=== PATIENT | female | born 1970 | race American Indian/Alaskan Native ===

== ENCOUNTER 2019-05-03 23:34 | Emergency (ER) | payer SELFPAY ==
--- NOTE | 2019-05-04 00:44 | XRay Report ---
CHEST 1 VIEW INDICATION / CLINICAL INFORMATION: MAIN: Chest Pain ALSO LEFT ARM PAIN. COMPARISON: None available. FINDINGS: SUPPORT DEVICES: None. HEART / MEDIASTINUM: No significant abnormality. LUNGS / PLEURA: No significant pulmonary or pleural abnormality. No pneumothorax. ADDITIONAL FINDINGS: No significant additional findings. IMPRESSION: 1. No acute findings. Signer Name: Michael Khan MD Signed: 05/04/2019 12:39 AM Workstation Name: [id number]
[2019-05-04 00:52] LABS: Basophils # (Auto) 0.1 K/mm3 (0.0-0.1); Eosinophils # (Auto) 0.1 K/mm3 (0.0-0.4); Eosinophils % (Auto) 1.6 % (0.0-4.3); Hematocrit 36.2 % (30.3-42.9); Hemoglobin 12.6 gm/dl (10.1-14.3); Lymphocytes # (Auto) 2.3 K/mm3 (1.2-5.4); Lymphocytes % (Auto) 29.8 % (13.4-35.0); Mean Corpuscular HGB Conc 35 % (30-34); Mean Corpuscular Volume 85 fl (79-97); Monocytes # (Auto) 0.5 K/mm3 (0.0-0.8); Monocytes % (Auto) 6.2 % (0.0-7.3); Platelet Count 250 K/mm3 (140-440); Red Blood Count 4.25 M/mm3 (3.65-5.03); Red Cell Distribution Width 15.8 % (13.2-15.2)
[2019-05-04 01:06] LABS: BUN/Creatinine Ratio 9; Blood Urea Nitrogen 10 mg/dL (7-17); Calcium 9.6 mg/dL (8.4-10.2); Hemolysis Index 10
[2019-05-04] MEDS ORDERED: PERCOCET 5/325 PO ONE (01:22)
[2019-05-04] MEDS ORDERED: NORMODYNE PO ONE ×2 (01:22→02:19)
[2019-05-04] MEDS ORDERED: TORADOL IM ONE (01:22)
[2019-05-04] MEDS ORDERED: FLEXERIL PO ONE (01:23)
--- NOTE | 2019-05-04 01:29 | Emergency Department Report ---
ED Neck Pain/Injury HPI - General Chief Complaint: Chest Pain Stated Complaint: SOB/LEFT SIDE SHARP PAIN/NUMBNESS Time Seen by Provider: 05/04/19 01:09 Mode of arrival: Ambulatory Limitations: Language Barrier - History of Present Illness Initial Comments: Mrs. Kumar is a 49-year-old female with history of dyslipidemia, congestive heart failure who presents with posterior neck pain and left arm pain for the past 5 days. She woke with severe neck pain on Friday. She was diagnosed with pinched nerve at outside hospital. She works at a [employer] center. No previous history of trauma. Tylenol did not improve the pain. Denies chest pain. No shortness of breath. She has tingling in the fingers. MD Complaint: neck pain -: Gradual, days(s) (5) Place: home Radiation: left upper extremity Severity: severe Severity scale (0 -10): 10 Consistency: constant Worsens With: movement of extremity, movement of neck Associated Symptoms: tingling Treatments Prior to Arrival: Acetaminophen - Related Data Previous Rx's Medication Instructions Recorded Last Taken Type Cyclobenzaprine [Flexeril] 10 mg PO TID PRN #20 tablet 05/04/19 Unknown Rx HYDROcodone/APAP 5-325 [[place] 1 each PO Q4HR PRN #10 tablet 05/04/19 Unknown Rx 5/325] Ibuprofen [Motrin 800 MG tab] 800 mg PO Q8HR PRN #15 tablet 05/04/19 Unknown Rx amLODIPine [Norvasc] 5 mg PO DAILY 30 Days #30 tab 05/04/19 Unknown Rx Allergies Allergy/AdvReac Type Severity Reaction Status Date / Time lisinopril Allergy Angioedema Verified 05/03/19 23:45 Penicillins Allergy Unknown Verified 05/03/19 23:45 shellfish derived Allergy Angioedema Verified 05/03/19 23:45 ED Review of Systems ROS: Stated complaint: SOB/LEFT SIDE SHARP PAIN/NUMBNESS Other details as noted in HPI Comment: All other systems reviewed and negative Constitutional: denies: fever, malaise Cardiovascular: denies: chest pain Neurological: paresthesias ED Past Medical Hx - Past Medical History Previous Medical History?: Yes Hx Congestive Heart Failure: Yes (Last EF 15%) Hx Seizures: Yes Additional medical history: Was on heart transplant list and was to get a pacemaker. Patient reports last EF 1 year ago 15% and that CHF improved and was removed from list. Take Entresto now. - Surgical History Past Surgical History?: No - Social History Smoking Status: Never Smoker - Medications Home Medications: Home Medications Medication Instructions Recorded Confirmed Last Taken Type Cyclobenzaprine [Flexeril] 10 mg PO TID PRN #20 tablet 05/04/19 Unknown Rx HYDROcodone/APAP 5-325 [[place] 1 each PO Q4HR PRN #10 tablet 05/04/19 Unknown Rx 5/325] Ibuprofen [Motrin 800 MG tab] 800 mg PO Q8HR PRN #15 tablet 05/04/19 Unknown Rx amLODIPine [Norvasc] 5 mg PO DAILY 30 Days #30 tab 05/04/19 Unknown Rx ED Physical Exam - General Limitations: Language Barrier General appearance: alert, in no apparent distress, other (appears uncomfortable especially with movement) - Head Head exam: Present: atraumatic, normocephalic - Eye Eye exam: Present: normal appearance - ENT ENT exam: Present: mucous membranes moist - Neck Neck exam: Present: normal inspection, full ROM - Respiratory Respiratory exam: Present: normal lung sounds bilaterally. Absent: respiratory distress, wheezes, rales, rhonchi - Cardiovascular Cardiovascular Exam: Present: regular rate, normal rhythm, normal heart sounds. Absent: systolic murmur, diastolic murmur, rubs, gallop - GI/Abdominal GI/Abdominal exam: Present: soft, normal bowel sounds. Absent: distended, tenderness, guarding, rebound - Extremities Exam Extremities exam: Present: normal inspection, other (severe pain with range of motion passive range of motion of the left upper extremity) - Back Exam Back exam: Present: normal inspection - Neurological Exam Neurological exam: Present: alert, oriented X3 - Psychiatric Psychiatric exam: Present: normal affect, normal mood - Skin Skin exam: Present: warm, dry, intact, normal color. Absent: rash ED Course Vital Signs 05/03/19 05/04/19 05/04/19 23:49 01:28 01:35 Temperature 98.6 F Pulse Rate 95 H 97 H Respiratory 16 Rate Blood Pressure 204/122 209/111 Blood Pressure [Right] O2 Sat by Pulse Oximetry 05/04/19 02:04 Temperature Pulse Rate 95 H Respiratory 13 Rate Blood Pressure Blood Pressure 196/109 [Right] O2 Sat by Pulse 99 Oximetry ED Medical Decision Making - Lab Data Result diagrams: 05/04/19 00:38 05/04/19 00:42 Laboratory Results - last 24 hr 05/04/19 05/04/19 05/04/19 00:38 00:42 00:42 WBC 7.7 RBC 4.25 Hgb 12.6 Hct 36.2 MCV 85 MCH 30 MCHC 35 H RDW 15.8 H Plt Count 250 Lymph % (Auto) 29.8 [place] % (Auto) 6.2 Eos % (Auto) 1.6 Baso % (Auto) 1.0 Lymph # 2.3 [place] # 0.5 Eos # 0.1 Baso # 0.1 Seg Neutrophils % 61.4 Seg Neutrophils # 4.7 Sodium 141 Potassium 3.5 L Chloride 103.2 Carbon Dioxide 26 Anion Gap 15 BUN 10 Creatinine 1.1 Estimated GFR 53 BUN/Creatinine Ratio 9 Glucose 110 H Calcium 9.6 Troponin T < 0.010 NT-Pro-B Natriuret Pep 59.59 - EKG Data EKG shows normal: sinus rhythm, axis, intervals, QRS complexes, ST-T waves Rate: normal - EKG Data 05/04/19 01:26 EKG obtained 0103 Normal sinus rhythm rate 90 beats a minute normal axis normal intervals no ST-T signs of ischemia normal EKG - Radiology Data Radiology results: report reviewed Chest x-ray no acute process according to radiology - Medical Decision Making Mrs. Kumar presents with severe neck pain and symptoms of cervical radiculopathy. Prescribed [place] ibuprofen Flexeril. Referred to pain specialis t. Critical care attestation.: If time is entered above; I have spent that time in minutes in the direct care of this critically ill patient, excluding procedure time. ED Disposition Clinical Impression: Cervical radiculopathy, Hypertensive urgency Disposition: -01 TO HOME OR SELFCARE Is pt being admited?: No Does the pt Need Aspirin: No Condition: Stable Instructions: Cervical Disc Herniation (ED), Cervical Radiculopathy (ED), Hypertension (ED) Prescriptions: Cyclobenzaprine [Flexeril] 10 mg PO TID PRN #20 tablet PRN Reason: Muscle Spasm Ibuprofen [Motrin 800 MG tab] 800 mg PO Q8HR PRN #15 tablet PRN Reason: Pain , Severe (7-10) HYDROcodone/APAP 5-325 [[place] 5/325] 1 each PO Q4HR PRN #10 tablet PRN Reason: Pain amLODIPine [Norvasc] 5 mg PO DAILY 30 Days #30 tab Referrals: JOHAN MARTIN MD [Referring] - 3-5 Days
[2019-05-04] MEDS ORDERED: TORADOL ONE (01:33)
[2019-05-04 02:34] VITALS: BP 187/93
== END 2019-05-04 02:50 | disposition home or self-care (01) ==
LOC: ED 23:34
DX: M54.12 Radiculopathy, cervical region (principal); I16.0 Hypertensive urgency; I11.0 Hypertensive heart disease with heart failure; I50.9 Heart failure, unspecified; Z86.69 Personal history of other diseases of the nervous system and sense organs; Z94.1 Heart transplant status; Z95.0 Presence of cardiac pacemaker; Z79.899 Other long term (current) drug therapy; Z88.0 Allergy status to penicillin; Z91.013 Allergy to seafood; Z88.8 Allergy status to other drugs, medicaments and biological substances
CPT/HCPCS: 36415; 71045; 80048; 83880; 84484; 85025; 93005; 93010; 96372; 99284; J1885